=== PATIENT | female | born 1990 | race Hispanic/Latino ===

== ENCOUNTER 2020-12-27 09:34 | Outpatient (CLI) | payer OTHER, SELFPAY ==
--- NOTE | ~2020-12-27 | XR_ITS ---
EXAMINATION: XR abdomen/kub 1V INDICATION: Right flank pain TECHNIQUE: Supine views of the abdomen were obtained on 2 radiographs. COMPARISON: None FINDINGS: No urolithiasis is identified. There are multiple phleboliths of the right pelvis. A modera te volume of colonic stool is present. The visualized lung bases are clear. The osseous structures ar e unremarkable. IMPRESSION: 1. No urolithiasis identified. Reviewed, dictated and finalized at location B.
--- NOTE | ~2020-12-27 | CT_ITS ---
EXAMINATION: CT abdomen pelvis wo con DATE: 12/27/2020 09:55 INDICATION: Right flank pain TECHNIQUE: Computed tomography (CT) of the abdomen and pelvis was performed without intravenous contr ast. The dose-length product (DLP) was 339.50 mGy-cm. Automated exposure control and iterative recons truction technique were employed. COMPARISON: None FINDINGS: The lung bases are clear. The heart size is normal. The liver, spleen, pancreas, gallbladde r, and adrenal glands are normal. The kidneys are unremarkable. No stones are identified in the kidne ys, ureters, or bladder. There is no hydronephrosis or hydroureter. No pathologically enlarged abdomi nal or pelvic lymph nodes are identified. There is no free intraperitoneal gas or evidence of bowel o bstruction. IMPRESSION: 1. No CT correlate for the patient's symptoms. Reviewed, dictated and finalized at location B.
== END 2020-12-27 09:35 ==
PROVIDERS: PCP Family Medicine; Visit Provider Nurse Practitioner Adult Health
DX: R10.9 Unspecified abdominal pain (principal)
CPT/HCPCS: 74018; 74176

== ENCOUNTER 2022-03-27 19:59 | Observation (INO) | payer OTHER, SELFPAY ==
--- NOTE | 2022-03-27 19:59 | OBADM ---
This patient, Geri Patterson, admitted to the OB room Labor/Delivery/Recovery 104 for observation. Patient/family oriented to hospital policies and general routines including ID bracelet, bed and alarms, visiting hours, pain management, procedures, bathroom and other care routines, personal items, smoking policy, room service/diet, and visiting hours. Patient/Family are encouraged to report perceived risks to care and to ask questions if they do not understand what they are told or what they should do.
[2022-03-27 22:15] VITALS: BMI 26.3
--- NOTE | 2022-03-30 07:28 | PM.OBTRLD ---
OB - Triage/Final Diagnosis Visit Information Date of evaluation: 03/28/22 Reason for evaluation: threatened labor Comments/Additional reasons for admission: I have assessed the risk for this patient, Geri Patterson, and determined that she would benefit from observation care.
== END 2022-03-27 22:25 | disposition home or self-care (01) ==
PROVIDERS: Admitting Provider Obstetrics & Gynecology; PCP Family Medicine; Visit Provider Obstetrics & Gynecology
DX: O47.1 False labor at or after 37 completed weeks of gestation (principal); Z3A.38 38 weeks gestation of pregnancy
CPT/HCPCS: G0378; G0379

== ENCOUNTER 2022-03-29 23:05 | Observation (INO) | payer OTHER, SELFPAY ==
[2022-03-30 01:14] VITALS: BMI 26.6
--- NOTE | 2022-04-04 07:37 | PM.OBTRLD ---
OB - Triage/Final Diagnosis Visit Information Date of evaluation: 03/30/22 Reason for evaluation: threatened labor Comments/Additional reasons for admission: I have assessed the risk for this patient, Geri Patterson, and determined that she would benefit from observation care.
== END 2022-03-30 01:23 | disposition home or self-care (01) ==
PROVIDERS: Admitting Provider Obstetrics & Gynecology; PCP Family Medicine; Visit Provider Obstetrics & Gynecology
DX: O47.1 False labor at or after 37 completed weeks of gestation (principal); Z3A.38 38 weeks gestation of pregnancy
CPT/HCPCS: G0378; G0379

== ENCOUNTER 2022-03-30 09:34 | Inpatient (IN) | payer OTHER, SELFPAY ==
[2022-03-30] VITALS (46 sets, daily range): BP systolic 85–153; BP diastolic 17–124; PULSE 69–119; RESP 16; TEMP 36.4–36.8; O2SAT 80–100; BMI 26.4
[2022-03-30] MEDS: LACTATED RINGERS 1,000 ML 125 ML IV CONT ×2 (11:10→12:00)
--- NOTE | 2022-03-30 11:17 | LDADM ---
This patient, Geri Patterson, was admitted to Labor/Delivery/Recovery 106 on 03/30/22 at 09:34. Plans for labor, pain management and were discussed with patient. Patient/family oriented to hospital policies and general routines including ID bracelet, bed and alarms, visiting hours, pain management, procedures, bathroom and other care routines, personal items, smoking policy, room service/diet and guest tray routines, security routines, and visiting hours. Patient/Family are encouraged to report perceived risks to care and to ask questions if they do not understand what they are told or what they should do. See OBIX for further documentation.
[2022-03-30 11:18] LABS: Basophils Absolute Auto 0.1 K/mm3 (0.0-0.1); Basophils Percent Auto 0.5 % (0.2-1.2); Eosinophils Absolute Auto 0.2 K/mm3 (0-0.3); Eosinophils Percent Auto 1.3 % (0-4.4); Hematocrit 36.8 % (37.0-47.0); Hemoglobin 12.5 g/dL (12.0-15.0); Immature Granulocyte Absolute 0.09 K/mm3 (0.00-0.031); Immature Granulocyte Percent A 0.7 % (0-0.5); Lymphocytes Percent Auto 15.8 % (18.3-44.2); Mean Corpuscular Hemoglobin 30.7 pg (26-34); Mean Corpuscular Volume 90.4 fl (80-100); Mean Platelet Volume 9.3 fl (7.4-10.4); Monocytes Absolute Auto 0.6 K/mm3 (0.1-0.6); Monocytes Percent Auto 4.7 % (2.6-8.5); Neutrophils Absolute Auto 9.7 K/mm3 (1.3-6.7); Platelet Count Result 354 k/mm3 (150-375); Red Blood Count 4.07 M/mm3 (4.2-5.4); Red Cell Distribution Width 13.5 % (11.5-14.5); White Blood Count 12.6 K/mm3 (4.5-10.0)
--- NOTE | 2022-03-30 11:50 | WPDANESEPP ---
Anes - Eval Pre Procedure Procedure: labor pain management Date/Time: 03/30/22 11:50 Surgeon: matilde Preop Diagnosis: pain during labor Pre Op Diagnosis: Labor Patient Data Age: 31 Gender: F Height: 1.63 m Weight: 70 kg Last Vital Signs O2 Del Method Room Air 03/30/22 11:16 Allergies Allergy/AdvReac Type Severity Reaction Status Date / Time Penicillins Allergy Mild HARD TO Verified 04/13/21 08:43 BREATHE Home Medications Medication Instructions Recorded Confirmed Type buspirone 10 mg tablet 10 mg PO TID 03/12/22 03/30/22 History prenat.vits,paulina,nqi-aipl-qobrg 1 tablet PO HS 03/12/22 03/30/22 History sertraline 50 mg tablet 50 mg PO DAILY 03/12/22 03/30/22 History valacyclovir 500 mg tablet 500 mg PO DAILY 03/12/22 03/30/22 History (Valtrex) Laboratory Tests 03/30/22 03/30/22 11:13 11:13 WBC 12.6 K/mm3 H K/mm3 (4.5-10.0) RBC 4.07 M/mm3 L M/mm3 (4.2-5.4) Hgb 12.5 g/dL g/dL (12.0-15.0) Hct 36.8 % L % (37.0-47.0) MCV 90.4 fl fl (80-100) MCH 30.7 pg pg (26-34) MCHC 34.0 g/dl g/dl (32-36) RDW 13.5 % % (11.5-14.5) Plt Count 354 k/mm3 k/mm3 (150-375) MPV 9.3 fl fl (7.4-10.4) Immature Gran % (Auto) 0.7 % H % (0-0.5) Neut % (Auto) 77.0 % H % (45.5-73.1) Lymph % (Auto) 15.8 % L % (18.3-44.2) [place] % (Auto) 4.7 % % (2.6-8.5) Eos % (Auto) 1.3 % % (0-4.4) Baso % (Auto) 0.5 % % (0.2-1.2) Lymph # (Auto) 2.00 K/mm3 K/mm3 (0.9-3.2) [place] # (Auto) 0.6 K/mm3 K/mm3 (0.1-0.6) Eos # (Auto) 0.2 K/mm3 K/mm3 (0-0.3) Baso # (Auto) 0.1 K/mm3 K/mm3 (0.0-0.1) Abs Immat Gran (auto) 0.09 K/mm3 H K/mm3 (0.00-0.031) Absolute Neuts (auto) 9.7 K/mm3 H K/mm3 (1.3-6.7) Absolute Nucleated RBC 0.0 K/mm3 K/mm3 (0.0-0.012) Nucleated RBC % 0.0 % % (0.0-0.2) RPR Pending Patient hx anesthesia problems: none Family hx anesthesia problems: none Results Review: All pre-operative results and documents have been reviewed as part of the pre-operative evaluation. [facility] Family History Family History Sibling Family history of mental disorder Depression Patient's brother is in good health Mother Depression Hypertension Patient's mother is in good health Father Patient's father is in good health Social History Social History (System 04/13/21 @ 08:43 by Jonn Wolff) Smoking status: Never smoker Alcohol intake: never Substance use: never Lack of Transportation: No Lack of Food: Never True Current Housing: I Have Housing Concerned About Future Housing: No Difficulty Paying Gas/Electric Bills: No Difficulty Paying for Meds: No Currently Unemployed: No Education: Decline to Answer Difficulty w/ Childcare or Family Care: No Spiritual care concerns: No Exam Day of Procedure 03/30/22 11:50
[2022-03-30 12:04] LABS: Rapid Plasma Reagin Non-Reactive (NonReactive)
--- NOTE | 2022-03-30 12:24 | WPDOBADMIT ---
Obstetrics - Admit Note Admission Note: record reviewed. No pertinent additions to the history and/or any subsequent changes in the physical findings that are not consistent with the expected course of the were found. Pt arrived in labor, SVE 6/100/-1 AROM small amount of clear fluid, bloody show noted, velamentous cord insert, DR. clayton aware of pt arrival and rupture status Additions to the history and/or subsequent changes in the physical findings follow. None.
[2022-03-30] MEDS: OXYTOCIN 30 UNITS/NS 500 ML 30 UNITS/500 ML BAG 999 UNITS IV CONT (13:07)
--- NOTE | 2022-03-30 13:19 | PM.OBPRVD ---
OB - Delivery Note Procedure Delivery date: 03/30/22 Procedure: vaginal delivery Delivery monitor: External FHT and External Uterine Route of delivery: Laceration Description: None Specimen: Yes Quantitative Blood Loss (ml): 415 Anesthesia type: Epidural Disposition: Floor Baby Date of : 03/30/22 Weeks of gestation at delivery: 38 gender: Male Weight (pounds): 7 Weight (ounces): 2 presentation: vertex position: Right Occiput Anterior Cord Vessel Description: 3 Vessels, Clamped/Cut and Delayed Cord Clamping score one minute: 8 score five minutes: 8 Narrative: mother and baby skin to skin in stable condition
[2022-03-30] MEDS: miSOPROStol 200 MCG TABLET 1000 MCG (13:21)
[2022-03-30] MEDS: BENZOCAINE 20% AER SPR (*SP) 56 GM CAN 1 SPRAY TOPICAL (14:44)
[2022-03-30] MEDS: ACETAMINOPHEN 325 MG TABLET 650 MG PO (14:44)
[2022-03-30] MEDS: WITCH HAZEL 40 PADS 1 PAD TOPICAL (14:44)
--- NOTE | 2022-03-30 16:13 | PC.NURSE ---
Patient transferred to post room #278 via wheelchair. Support person present. Oriented to unit, room, information board, rooming in, admission packet and security measures. Patient verbalizes understanding.
[2022-03-30] MEDS: busPIRone HCL 10 MG TABLET PO (16:55)
[2022-03-30] MEDS: IBUPROFEN 600 MG TABLET PO (19:15)
[2022-03-31] MEDS: IBUPROFEN 600 MG TABLET PO ×2 (04:41→13:48)
[2022-03-31 05:29] LABS: Hematocrit 31.1 % (37.0-47.0); Hemoglobin 10.4 g/dL (12.0-15.0)
[2022-03-31 07:00] VITALS: BP 107/60; PULSE 65; RESP 18; TEMP 36.4; O2SAT 98
[2022-03-31] MEDS: DOCUSATE SODIUM 100 MG CAPSULE PO (08:15)
[2022-03-31] MEDS: busPIRone HCL 10 MG TABLET PO ×2 (08:15→13:48)
[2022-03-31] MEDS: ACETAMINOPHEN 325 MG TABLET 650 MG PO (08:16)
[2022-03-31] MEDS: SERTRALINE HCL 50 MG TABLET PO (08:16)
[2022-03-31] MEDS: MULTIVIT/MIN/PREN/FOL AC/IRON TABLET 1 TAB PO (08:16)
[2022-03-31 09:30] VITALS: PULSE 65; RESP 18; O2SAT 98
--- NOTE | 2022-03-31 10:40 | P.PNOB_ITS ---
OB - PN: Subj Subjective Date/time seen: 03/31/22 10:40 vaginal delivery day 1 OB - PN: Obj Data Labs 03/31/22 04:38 Labs: Laboratory Results - last 24 hr 03/30/22 03/30/22 03/30/22 11:13 11:13 11:13 WBC 12.6 H RBC 4.07 L Hgb 12.5 Hct 36.8 L MCV 90.4 MCH 30.7 MCHC 34.0 RDW 13.5 Plt Count 354 MPV 9.3 Immature Gran % (Auto) 0.7 H Neut % (Auto) 77.0 H Lymph % (Auto) 15.8 L [place] % (Auto) 4.7 Eos % (Auto) 1.3 Baso % (Auto) 0.5 Lymph # (Auto) 2.00 [place] # (Auto) 0.6 Eos # (Auto) 0.2 Baso # (Auto) 0.1 Abs Immat Gran (auto) 0.09 H Absolute Neuts (auto) 9.7 H Absolute Nucleated RBC 0.0 Nucleated RBC % 0.0 RPR Non-reactive Blood Type O Positive Antibody Screen Negative 03/31/22 04:38 WBC RBC Hgb 10.4 L Hct 31.1 L MCV MCH MCHC RDW Plt Count MPV Immature Gran % (Auto) Neut % (Auto) Lymph % (Auto) [place] % (Auto) Eos % (Auto) Baso % (Auto) Lymph # (Auto) [place] # (Auto) Eos # (Auto) Baso # (Auto) Abs Immat Gran (auto) Absolute Neuts (auto) Absolute Nucleated RBC Nucleated RBC % RPR Blood Type Antibody Screen OB - PN A/P Plan day: 1 Plan: routine care and discharge home Time Spent With Patient Time: Total time spent is greater than 50% in coordination of care (as documented) at patient's floor/unit and/or counseling patient: Review of Systems Review of Systems: All systems reviewed & are unremarkable except as noted in HPI and below Exam Const: General: cooperative and healthy appearing
--- NOTE | 2022-03-31 10:42 | P.DS_ITS ---
DS: Admitting Diagnosis Discharge Date 03/31/22 Admitting Diagnosis labor OB - DS: Summary OB Procedures : None OB Procedures Intrapartum: Spontaneous Vag Delivery OB Procedures: : None Time Spent with Patient Time attestation: Total time spent providing and/or coordinating discharge services: DS: Data Data Completed and Pending Pending studies at discharge: Pending at discharge 03/30/22 14:39 Surgical [PTH] Routine Labs on day of discharge: Labs from last 24 hours 03/31/22 03/30/22 03/30/22 04:38 11:13 11:13 WBC RBC Hgb 10.4 L Hct 31.1 L MCV MCH MCHC RDW Plt Count MPV Immature Gran % (Auto) Neut % (Auto) Lymph % (Auto) [place] % (Auto) Eos % (Auto) Baso % (Auto) Lymph # (Auto) [place] # (Auto) Eos # (Auto) Baso # (Auto) Abs Immat Gran (auto) Absolute Neuts (auto) Absolute Nucleated RBC Nucleated RBC % RPR Non-reactive Blood Type O Positive Antibody Screen Negative 03/30/22 11:13 WBC 12.6 H RBC 4.07 L Hgb 12.5 Hct 36.8 L MCV 90.4 MCH 30.7 MCHC 34.0 RDW 13.5 Plt Count 354 MPV 9.3 Immature Gran % (Auto) 0.7 H Neut % (Auto) 77.0 H Lymph % (Auto) 15.8 L [place] % (Auto) 4.7 Eos % (Auto) 1.3 Baso % (Auto) 0.5 Lymph # (Auto) 2.00 [place] # (Auto) 0.6 Eos # (Auto) 0.2 Baso # (Auto) 0.1 Abs Immat Gran (auto) 0.09 H Absolute Neuts (auto) 9.7 H Absolute Nucleated RBC 0.0 Nucleated RBC % 0.0 RPR Blood Type Antibody Screen Discharge Plan Discharge Attending physician on discharge: Daphne Phan Discharging Clinician: Soha Coates Patient Disposition: Home, Self-Care Activity: pelvic rest Diet: regular Patient Instructions: Antibiotic Form Stand Alone Forms: General Discharge Information Follow-up/Referrals: Soha Coates, LORENAM [Certified Nurse Product Test Specialist] - 1 Week Discharge Medications: New ibuprofen 600 mg Tablet 600 mg PO Q6H PRN (Reason: Cramping) Qty: 30 0RF Continued prenat.vits,paulina,ajk-zcfl-uxdew Tablet 1 tablet PO HS valacyclovir [Valtrex] 500 mg Tablet 500 mg PO DAILY buspirone 10 mg Tablet 10 mg PO TID sertraline 50 mg Tablet 50 mg PO DAILY Date of admission: 03/30/22 09:34 Primary Care Provider: ChacortaAndrey Admitting Provider: Daphne Phan Attending physician on admission: Daphne Phan Condition: Stable
--- NOTE | 2022-03-31 10:58 | WPDANLDPN2 ---
Anes-Prog Note L&D Date/Time: 03/31/22 10:58 Comfortable throughout: labor and delivery Neuraxial method: epidural Epidural/Spinal procedure site: clean & non-tender Neuro status: Neuro function grossly intact. Cardiovascular status: normal Respiratory status: normal Airway patency: baseline Mental status: baseline Post-Op hydration status: normal Vital Signs: Last Vital Signs Temp 36.4 C 03/31/22 07:00 Pulse 65 03/31/22 07:00 Resp 18 03/31/22 07:00 BP 107/60 03/31/22 07:00 Pulse Ox 98 03/31/22 07:00 O2 Del Method Room Air 03/30/22 11:16 Pain score (VAS): 05/01 I/O: Intake & Output 03/30/22 03/31/22 03/31/22 23:59 07:59 15:59 Intake Total 500 Output Total 50 Balance 450 Post-procedural complaints: none Patient feedback: Patient satisfied with anesthetic care.
[2022-03-31 12:00] VITALS: PULSE 65; RESP 18; O2SAT 98
[2022-03-31] MEDS: WITCH HAZEL 40 PADS 1 PAD TOPICAL (13:48)
[2022-03-31] MEDS: BENZOCAINE 20% AER SPR (*SP) 56 GM CAN 1 SPRAY TOPICAL (13:48)
[2022-03-31] MEDS: TETANUS,DIPHTHERIA,AC PERTUSSIS ADULT (0.5 ML) BOOSTRIX IM (13:48)
[2022-04-02 10:46] VITALS: BP 124/71; PULSE 89; RESP 20; TEMP 36.8; O2SAT 99
== END 2022-03-31 15:40 | disposition home or self-care (01) | DRG 807 ==
LOC: ANHLDR 10:46 → ANHOB2 16:25
PROVIDERS: Advanced Practice Midwife; Admitting Provider Obstetrics & Gynecology; PCP Family Medicine; Visit Provider Obstetrics & Gynecology
DX: O43.123 Velamentous insertion of umbilical cord, third trimester (principal); Z37.0 Single live birth; Z3A.38 38 weeks gestation of pregnancy
CPT/HCPCS: 36415; 85014; 85018; 85025; 86592; 86850; 86900; 86901; 88307; 90715; A9270; G0378; G0379; J2590; J2795; J7120